=== PATIENT | female | born 1950 | race Caucasian/White ===

== ENCOUNTER 2017-09-13 06:05 | Inpatient (IN) | payer OTHER ==
[~2017-09-13] VITALS: Ht 157.5 cm; Wt 79.8 kg
[2017-09-13] MEDS ORDERED: LORazepam 1MG TABLET ONE (06:54)
[2017-09-13] MEDS ORDERED: LORazepam 1MG TABLET PO ONE (07:00)
[2017-09-13 07:08] LABS: BASOPHILS # (AUTO) 0.04 x10^3/uL (0-0.1); BASOPHILS % (AUTO) 1 % (0-1); EOSINOPHILS # (AUTO) 0.03 x10^3/uL (0-0.4); EOSINOPHILS % (AUTO) 0 % (1-7); LYMPHOCYTES # (AUTO) 1.89 x10^3/uL (1-3.4); LYMPHOCYTES % (AUTO) 22 % (22-44); MD NO; MEAN CORPUSCULAR HEMOGLOBIN 32.7 pg (27.0-34.8); MEAN CORPUSCULAR VOLUME 96.1 fL (80-100); MEAN PLATELET VOLUME 9.2 fL (7.4-10.4); MONOCYTES # (AUTO) 0.61 x10^3/uL (0.2-0.8); MONOCYTES % (AUTO) 7 % (2-9); NEUTROPHILS # (AUTO) 5.98 x10^3/uL (1.8-6.8); NEUTROPHILS % (AUTO) 70 % (42-75); PLATELET COUNT 221 x10^3/uL (130-400); RED BLOOD COUNT 4.43 x10^6/uL (3.82-5.3); RED CELL DISTRIBUTION WIDTH 13.5 % (9.6-15.2)
[2017-09-13 07:21] LABS: ALBUMIN 3.7 g/dL (3.4-5.0); ANION GAP 7 mmol/L (5-15); CALCIUM 8.7 mg/dL (8.5-10.1); CHLORIDE 110 mmol/L (98-107); CREATININE 0.82 mg/dL (0.55-1.02)
[2017-09-13 07:25] LABS: TROPONIN I < 0.015 ng/mL (0.000-0.045)
[2017-09-13 09:21] LABS: ALBUMIN 3.9 g/dL (3.4-5.0); ANION GAP 9 mmol/L (5-15); CALCIUM 8.7 mg/dL (8.5-10.1); CHLORIDE 109 mmol/L (98-107)
[2017-09-13 09:26] LABS: ALANINE AMINOTRANSFERASE 25 U/L (12-78); ALKALINE PHOSPHATASE 88 U/L (45-117); BILIRUBIN,TOTAL 0.1 mg/dL (0.2-1.0); CREATININE 0.88 mg/dL (0.55-1.02); TROPONIN I < 0.015 ng/mL (0.000-0.045)
[2017-09-13 10:09] LABS: CULTURE INDICATED? YES; MICROSCOPIC INDICATED
[2017-09-13] MEDS ORDERED: DOCUSATE 100 MG CAPSULE PO PRN (12:00)
[2017-09-13] MEDS ORDERED: ONDANSETRON ODT 4 MG PO PRN (12:00)
[2017-09-13 12:35] VITALS: BP 100/62
[2017-09-13 12:37] VITALS: BP 107/68
[2017-09-13 12:39] VITALS: BP 115/75
[2017-09-13] MEDS: ACETAMINOPHEN 325 MG TABLET PO PRN (12:43)
[2017-09-13] MEDS ORDERED: LOTE5DRO2 EACHEYE (13:03)
[2017-09-13] MEDS ORDERED: CLON1TAB4 PO (13:03)
[2017-09-13] MEDS ORDERED: PARO10TA3 PO (13:03)
[2017-09-13] MEDS ORDERED: PHEN200C3 PO (13:03)
[2017-09-13] MEDS ORDERED: ALPR1TAB6 PO (13:03)
[2017-09-13] MEDS ORDERED: PRIM250T PO (13:03)
[2017-09-13 13:20] LABS: AMPHETAMINE SCREEN, URINE Negative (Negative); BARBITURATE SCREEN, URINE Positive (Negative); BENZODIAZEPINE SCREEN, URINE Positive (Negative); CANNABINOID SCREEN, URINE Negative (Negative); COCAINE SCREEN, URINE Negative (Negative); METHADONE SCREEN, URINE Negative (Negative); OPIATE SCREEN, URINE Negative (Negative)
[2017-09-13] MEDS: ALPRazolam 1MG TABLET PO PRN ×2 (14:20→21:42)
[2017-09-13] MEDS ORDERED: ONDA4TAB13 PO (19:12)
[2017-09-13] MEDS ORDERED: DOCU-131 PO (19:12)
[2017-09-13 21:19] VITALS: BP 114/73
[2017-09-13] MEDS: PHENYTOIN 100 MG CAPSULE PO SCH (21:34)
[2017-09-13] MEDS: PRIMIDONE 250 MG TABLET PO SCH (21:35)
[2017-09-14 01:45] VITALS: BP 96/61
[2017-09-14] MEDS: ACETAMINOPHEN 325 MG TABLET PO PRN (05:23)
[2017-09-14 06:53] VITALS: BP 100/68
[2017-09-14] MEDS: PRIMIDONE 250 MG TABLET PO SCH (08:48)
[2017-09-14] MEDS: ALPRazolam 1MG TABLET PO PRN ×2 (08:48→15:37)
[2017-09-14] MEDS: PHENYTOIN 100 MG CAPSULE PO SCH (08:48)
[2017-09-14] MEDS ORDERED: PAROXETINE 10 MG TABLET PO SCH (09:00)
[2017-09-14 14:00] VITALS: BP 97/61
== END 2017-09-14 17:40 | disposition home or self-care (01) | DRG 312 ==
LOC: ED 07:59 → EDIP 09:30 → OBSVTOIN 09:30 → 4WST 10:40
PROVIDERS: ADMIT Hospitalist; ATTEND Hospitalist
DX: R55 Syncope and collapse (principal); F41.1 Generalized anxiety disorder; F41.0 Panic disorder [episodic paroxysmal anxiety]; G40.909 Epilepsy, unspecified, not intractable, without status epilepticus; R00.2 Palpitations; Z85.3 Personal history of malignant neoplasm of breast; Z86.61 Personal history of infections of the central nervous system; Z90.13 Acquired absence of bilateral breasts and nipples; Z92.21 Personal history of antineoplastic chemotherapy; Z83.3 Family history of diabetes mellitus
CPT/HCPCS: 36415; 70450; 71045; 80048; 80053; 80185; 80307; 81001; 82040; 82962; 84443; 84484; 85025; 87086; 93005; 95816; 99285